=== PATIENT | male | born 1965 | race Caucasian/White ===

== ENCOUNTER 2022-05-06 12:35 | Emergency (ER) | payer OTHER, SELFPAY ==
--- NOTE | ~2022-05-06 | XR_ITS ---
EXAMINATION: XR chest 2V DATE: 05/06/2022 13:11 INDICATION: Dyspnea on exertion. TECHNIQUE: Frontal and lateral views of the chest were obtained. COMPARISON: None. FINDINGS: There is mild scarring at right lung apex. No pleural effusion or pneumothorax. The heart s ize is normal. IMPRESSION: 1. Mild scarring at right lung apex. Reviewed, dictated and finalized at location A.
[2022-05-06 12:50] VITALS: BP 119/73; PULSE 88; RESP 18; TEMP 36.8; O2SAT 97
--- NOTE | 2022-05-06 13:17 | ED.URI ---
HPI - URI/Sore Throat General Chief Complaint: Upper Respiratory Infection Stated Complaint: Diarrhea,Chills Time Seen by Provider: 05/06/22 13:17 Source: patient Mode of arrival: ambulatory Limitations: no limitations History of Present Illness HPI Narrative: 56 yo M presents with c/o diarrhea, upset stomach, fatigue for 4 days. Has fever for 1 day that resolved. Start taking antidiarrheal yesterday which has slowed down diarrhea somewhat. Was able to eat pancakes for breakfast. States he is hungry but afraid to eat because runs right through him . States rectum is getting sore. Able to keep down fluids. No N/V. Does feel winded when ambulatory with generalized weakness. NO cough, congestion, sore throat. All systems reviewed and negative except as noted above. Related Data Home Medications Medication Instructions Recorded Confirmed atorvastatin 20 mg tablet 20 mg HS 05/06/22 05/06/22 omeprazole 40 mg capsule,delayed 40 mg DAILY 05/06/22 05/06/22 release Allergies Allergy/AdvReac Type Severity Reaction Status Date / Time sertraline Allergy Unknown Rash Verified 09/26/18 14:27 ranitidine [From Zantac] Allergy Unknown Verified 05/06/22 13:03 Review of Systems Review of Systems: CONSTITUTIONAL: Denies fever, chills, or sweats. EYES: Denies visual changes, redness, or discharge. ENT: Denies rhinorrhea, congestion, sore throat, or otalgia. CARDIOVASCULAR: Denies chest pain, palpitations, or edema. RESPIRATORY: Denies cough or dyspnea. GASTROINTESTINAL: Denies abdominal pain, nausea, vomiting. Reports diarrhea. GENITOURINARY: Denies dysuria or hematuria. SKIN: Denies rash or itching. MUSCULOSKELETAL: Denies back pain, joint pain, or myalgia. NEUROLOGIC: Denies headache, numbness, or weakness. PSYCHIATRIC: Denies anxiety or depression. All other systems reviewed are negative, except as documented in HPI. PMFSH Comments At time of signature, agree with nursing past medical, surgical, social and family history. There is no relevant family history pertinent to the presenting complaint. Exam Narrative: GENERAL: This is a well-nourished, well-developed patient, in no apparent distress. HEAD: normocephalic, atraumatic. EYES: PERRL. Sclera clear/white. Vision is grossly intact. EARS: External ears normal NOSE: External nose normal NECK: Neck supple, non-tender without lymphadenopathy, masses or thyromegaly. CARDIOVASCULAR: Regular rate and rhythm without murmurs, gallops, or rubs. RESPIRATORY: Clear to auscultation. Breath sounds equal bilaterally. No wheezes, rales, or rhonchi. GASTROINTESTINAL: Abdomen soft, non-tender, nondistended. Bowel sounds are hyperactive active. No hepato-splenomegaly, or palpable masses. No guarding. SKIN: warm, Dry, intact with no suspicious lesions or rash, good texture and turgor. NEURO: awake, alert, and oriented to person, place and time. There were no obvious focal neurologic abnormalities. EXTREMITIES: No joint tenderness, effusion, or edema noted. Course Course Level of Care: Express Care Visit Vital Signs Vital signs: Vital Signs Temperature 36.8 C 05/06/22 12:50 Pulse Rate 88 05/06/22 12:50 Respiratory Rate 18 05/06/22 12:50 Blood Pressure 119/73 05/06/22 12:50 Pulse Oximetry 97 05/06/22 12:50 Oxygen Delivery Room Air 05/06/22 12:50 Temperature 36.8 C 05/06/22 12:50 Pulse Rate 88 05/06/22 12:50 Respiratory Rate 18 05/06/22 12:50 Blood Pressure 119/73 05/06/22 12:50 Pulse Oximetry 97 05/06/22 12:50 Oxygen Delivery Room Air 05/06/22 12:50 Reviewed MDM - URI/Sore Throat MDM Narrative Medical decision making narrative: Patient is aware of diagnosis, understands and agrees to treatment plan. Anticipatory guidance given. Patient agrees to follow-up as directed and is aware of reasons to seek care at the emergency department. Portions of this record may have been created with voice recognition software Negative rapid COVID.
== END 2022-05-06 13:38 | disposition home or self-care (01) ==
PROVIDERS: Emergency Provider Nurse Practitioner Family
DX: B34.9 Viral infection, unspecified (principal); R19.7 Diarrhea, unspecified; Z20.822 Contact with and (suspected) exposure to COVID-19; E78.00 Pure hypercholesterolemia, unspecified; K21.9 Gastro-esophageal reflux disease without esophagitis
CPT/HCPCS: 71046; 87426; 99213; C9803; G0463

== ENCOUNTER 2023-03-03 15:00 | Outpatient (RCR) | payer OTHER, SELFPAY ==
--- NOTE | 2023-01-26 12:52 | OTOPEVAL1 ---
Assessment and note entered by Jovany Vigil, FARHEEN/Tino, CHT Evaluation Information Assessment Status Evaluation Diagnosis OA of left elbow Subjective Information Patient reports experiencing left elbow pain that has progressively gotten worse for about 6 months. X-rays are negative for fracture, but positive for OA. 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 He reports he may have injured his elbow a long time ago, but has never sought out medical evaluation or treatment for it. He reports that the elbow in the last 6 months has been giving him more pain, enough to finally have it looked at. He attended outpatient therapy for 2 months and he progressed to being able to now bend his elbow enough to wash his hair and put ear plugs in and he wore a dynamic elbow extension brace to work on extension for ~1 month. He reports he stopped wearing this due to pain. He reports he is having so much pain he is unable to use the left arm to drive. He reports no pain with distraction of the elbow - able to carry 5 lb. buckets of water without any pain. He is having pain with elbow flexion with resistance. Reported Pain Level Pain Score 5: Self Report Additional Pain Score Comments Patient reporting no pain at rest. 5/10 pain with lifting a 5 lb. dumbbell off the floor. Reports pain can get up to 8/10 at the worst , this typically happens with any sort of heavy lifting/resisted elbow flexion. Assessment OT Clinical Summary Patient referred to outpatient OT with dx of left elbow OA. He has been experiencing progressively worsening of his symptoms of pain and stiffness over the last 6 months and is unable to pinpoint a particular injury. Evaluation today reveals functional elbow flexion/extension ROM, but very limited active supination. The radial head is the site of his pain/discomfort. This area is limiting his ability to flex with resistance due to degenerative changes and stiffness. He will benefit from skilled OT for use of modalities, manual therapy, strengthening, and HEP instruction and progression to facilitate optimal functional use of the left UE. Plan of Care Interventions Therapeutic Exercise,Manual Therapy,Hot Pack/Cold
--- NOTE | 2023-03-03 15:37 | OTOPDC ---
Assessment and note entered by Jovany Vigil, OTR/Tino, CHT Evaluation Information Diagnosis OA of left elbow Subjective Information Patient reports having left elbow pain for over a year, but reports it has been progressively getting worse over the last 8 months or so. X-rays are negative for fracture, but positive for OA. His pain tends to fluctuate depending on the activity, such as when raking up sticks/leaves and with lifting. He is now able to close his car door and use his left hand on the steering wheel. He continues to be concerned about the amount of pain he has with certain activities. Functional ROM has remained unchanged: elbow flexion 125 degrees, elbow extension -20 degrees, and supination 55 degrees. Pronation is WNL. Gross strength is WNL. Reported Pain Level Pain Score 0: Self Report Additional Pain Score Comments Reporting no pain at rest. In the last week his pain has gotten up to an 8/10 with activity. When trying to lift a 5 lb. weight up off the floor, he reports 5/10 pain. This has remained unchanged since the start of care. Assessment OT Clinical Summary Patient referred to outpatient OT with dx of left elbow OA. He has been experiencing progressively worsening of his symptoms of pain and stiffness over the last 6-8 months. He has made some functional progress with now being able to use the left hand to close the car door and turn his steering wheel, however these abilities fluctuate depending on pain. He continues to have reduced forearm rotation and pain at the radial head with mobilizing the elbow joint into supination. Limited functional progress noted with therapeutic intervention. Recommend he continues to complete ROM and strengthening HEP to inhibit further stiffness. Also recommend the follows up with MD for other pain treatment options. Plan of Care OT Services Indicated No
== END 2023-03-03 16:36 | disposition home or self-care (01) ==
LOC: ANHHIOT 15:00
PROVIDERS: Visit Provider Orthopaedic Surgery
DX: M19.022 Primary osteoarthritis, left elbow (principal)
CPT/HCPCS: 97018; 97110; 97140; 97165; 99199

== ENCOUNTER 2024-07-20 15:45 | Outpatient (RCR) | payer OTHER, SELFPAY ==
--- NOTE | 2024-05-25 19:26 | PTOPEVAL1 ---
Assessment and note entered by Yee Monroe, PT Evaluation Information Assessment Status Evaluation Diagnosis strain of neck muscle initial encounter ICD-10 Condition Codes (PT) Cervicalgia M54.2 Other ICD-10 Condition Codes ( Abnormal posture PT) Onset 3 weeks ago Subjective Information Pt states about three weeks ago pain started in right side of neck off and on, but since then has been more frequent and today has been all day. Muscle relaxers helped but would know me out but would take at night and then the next day would have difficulty waking up Stopped taking these. Pt states took Ibuprofen but didn't know if it was helping or not since the pain would be off and on. Did not do x-rays. Pain stays localized to the neck area Reported Pain Level Pain Score 5: Self Report Assessment PT Clinical Summary Pt presents with complaints of right sided neck pain that began approx three weeks ago. Reports pain initially was on and off then became more consistent. Tried ibuprofen but not consistently and was unable to tell if this helped as the pain was not consistent. Muscle relaxers at night helped but he cont to have groggy symptoms the next morning thus stopped taking the medication. Pt evaluation demo's decreased cervical ROM, increased pain with extension, right lateral flexion, and right rotation, significant tenderness to palpation to the soft tissues of the right side of the neck consistent with medical diagnosis and with possibility of facet impingement underlying. Pt has been educated on changed in his positioning and cryotherapy to reduce inflammation to begin immediately. He will benefit from physical therapy to address deficits, reduce pain, and return to PLOF. Plan of Care Interventions Electrical Stimulation,Hot Pack/Cold Pack,Manual Therapy,Mechanical Traction,Neuro Re-education, Therapeutic Activities,Therapeutic Exercise,Self- Care/Home Management,Ultrasound PT Services Indicated Yes Treatment Frequency and 2x weekly x 10 visits Duration These treatments will address the objective and functional deficits as defined above. The patient will be advanced safely and appropriately in order for the patient to progress towards his/her prior level of function. Additional exercises will be introduced and as well as a comprehensive home exercise program upon discharge, if needed, ?to ensure carryover of funct
--- NOTE | 2024-05-25 19:26 | OPREHPOC ---
Outpatient Therapy Plan of Care This is a Multidisciplinary Plan of Care that may contain components documented by all disciplines (PT, OT, and ST.) PT Problem 1 PT Problem #1 Knowledge Deficit PT Goal 1 Goal / Goal Update Pt will be independent in HEP Pt will verbalize understanding of diagnosis and prognosis Target Visit 10 PT Problem 2 PT Problem #2 Pain PT Goal 1 Goal / Goal Update Pt will report greatest pain level at 5/10 or less to improve ADLs and activities Target Visit 10 PT Goal 2 Goal / Goal Update Pt will report resolution of pain to return to PLOF Target Visit 20 PT Problem 3 PT Problem #3 Impaired Range of Motion PT Goal 1 Goal / Goal Update Pt will demo cervical active ROM rotation ami of 75% or greater Target Visit 10 PT Goal 2 Goal / Goal Update Pt will demo lateral cervical flexion of 30 degrees or greater without pain ami Target Visit 20
--- NOTE | 2024-07-20 17:21 | PTOPDC ---
Assessment and note entered by Amelia Cortes, PT Evaluation Information Assessment Status Discharge Diagnosis strain of neck muscle initial encounter ICD-10 Condition Codes (PT) Cervicalgia M54.2 Other ICD-10 Condition Codes ( Abnormal posture PT) Onset 3 weeks ago Subjective Information Pt reports he can move his head better now and the pain is not as much as before. However, he is frustrated because he continue to feel pain and discomfort to the same area in the neck every time he turns to the R side and it would feel stiff going back to the center. Pain is persisting, not gone 100%. Reported Pain Level Pain Score 2: Self Report Assessment PT Clinical Summary Pt demos gains in therapy with ROM and strength. However, pain is persisting with very specific movement. Pt requested to be DC'd and will talk to the MD about other options at this time. Skilled PT discontinued. Plan of Care PT Services Indicated No
== END 2024-07-21 14:59 | disposition home or self-care (01) ==
LOC: ANHHIPT 15:45
DX: S16.1XXA Strain of muscle, fascia and tendon at neck level, initial encounter (principal)
CPT/HCPCS: 97012; 97014; 97032; 97035; 97110; 97140; 97161; 97530; 97750; G0283

== ENCOUNTER 2025-06-01 15:00 | Outpatient (RCR) | payer OTHER, SELFPAY ==
--- NOTE | 2025-03-06 16:15 | OTOPEVAL1 ---
Assessment and note entered by FARHEEN Seo/Tino, CHT Evaluation Information Assessment Status Evaluation Diagnosis Primary OA of left elbow ICD-10 Condition Codes (OT) Pain in left elbow M25.522 Subjective Information 03/02/25: Patient underwent left elbow open debridement with loose body removal and capsular release. He presents today for initiation of his HEP and for fabrication of a night time extension orthosis. He has not been using his left hand at all and his has been assisting him with ADLs PRN. Reported Pain Level Pain Score 6: Self Report Additional Pain Score Comments 8/10 with active ROM. Assessment OT Clinical Summary Patient referred to OT 4 days following arthroscopic elbow capsular release and debridement. Initiated active assisted ROM HEP for elbow flexion, extension, pronation, and supination. Also fabricated a custom elbow extension orthosis for night wear. Patient's present and demonstrates good understanding of active assisted ROM. Patient able to flex the elbow ~40 degrees and he does achieve full extension. Instructed in HEP, positioning, precautions, orthotic wear, use of ice/elevation, and to keep incision area clean and dry. Continued follow up indicated to progress functional ROM, modalities for pain, HEP progression, manual therapy, and therapeutic exercise to facilitate optimal functional left UE ROM/use for ADLs. Plan of Care Interventions Therapeutic Exercise,Manual Therapy,Therapeutic Activities,Hot Pack/Cold Pack,Check Out for Orthotic/Prosthetic,Ultrasound,Paraffin OT Services Indicated Yes Treatment Frequency and 2x/week for 8 visits Duration These treatments will address the objective and functional deficits as defined above. The patient will be advanced safely and appropriately in order for the patient to progress towards his/her prior level of function. Additional exercises will be introduced and as well as a comprehensive home exercise program upon discharge, if needed, ?to ensure carryover of functional gains achieved in the clinic. This treatment plan has been reviewed and agreement upon by the patient.
--- NOTE | 2025-03-06 16:15 | OPREHPOC ---
Outpatient Therapy Plan of Care This is a Multidisciplinary Plan of Care that may contain components documented by all disciplines (PT, OT, and ST.) OT Problem 1 OT Problem #1 Knowledge Deficit OT Goal 1 Goal / Goal Update 1. Patient to be independent with instructed materials. Target Visit 8 OT Problem 2 OT Problem #2 Pain OT Goal 1 Goal / Goal Update 1. Patient to report reduced left elbow pain to 4/ 10 or less with active ROM. Target Visit 8 OT Problem 3 OT Problem #3 Impaired Range of Motion OT Goal 1 Goal / Goal Update 1. Patient to progress to 120 degrees of active elbow flexion. 2. Patient to progress to full forearm rotation with the elbow at 90 degrees. Target Visit 8
--- NOTE | 2025-03-28 10:43 | OTOPPROG ---
Assessment and note entered by Jovany Vigil, FARHEEN/Tino, JOY OT Progress Update 03/28/25 Assessment Status Progress Diagnosis Primary OA of left elbow ICD-10 Condition Codes (OT) Pain in left elbow M25.522,Generalized muscle weakness M62.81 Subjective Information 03/02/25: Patient underwent left elbow open debridement with loose body removal and capsular release. Patient reports good progress since the start of care. He reports his ROM is improving and his pain is reducing. He is back to completing ADLs independently. ROM: Elbow flexion improved from 40 to 120 deg. Elbow extension remained at -5 deg. Supination measuring 45 deg. Pronation is WNL/85 deg. Assessment OT Clinical Summary Patient referred to OT following left elbow arthroscopic capsular release and debridement. He is progressing very well with therapy. His elbow ROM is progressing toward normal limits: 120-125 degrees of flexion and elbow extension has maintained -5 degree extension lag. Forearm pronation is WNL and supination improved to 45 degrees. His tolerance with active and passive ROM is improving. Adding shoulder ROM to his HEP due to evidence of tightness and weakness proximally. He is working on scar mobilization as well. Continued follow up indicated to progress functional ROM, progress HEP, modalities for pain, manual therapy, and therapeutic exercise to facilitate optimal functional left UE ROM/use for ADLs. Plan of Care Interventions Therapeutic Exercise,Manual Therapy,Neuro Re- education,Therapeutic Activities,Hot Pack/Cold Pack,Check Out for Orthotic/Prosthetic,Ultrasound, Paraffin OT Services Indicated Yes Treatment Frequency and 2x/week for 8 visits Duration These treatments will address the objective and functional deficits as defined above. The patient will be advanced safely and appropriately in order for the patient to progress towards his/her prior level of function. Additional exercises will be introduced and as well as a comprehensive home exercise program upon discharge, if needed, ?to ensure carryover of functional gains achieved in the clinic. This treatment plan has been reviewed and agreement upon by the patient.
--- NOTE | 2025-03-28 10:44 | OPREHPOC ---
Outpatient Therapy Plan of Care This is a Multidisciplinary Plan of Care that may contain components documented by all disciplines (PT, OT, and ST.) OT Problem 1 OT Problem #1 Knowledge Deficit OT Goal 1 Goal / Goal Update 1. Patient to be independent with instructed materials. ---OT POC UPDATE 03/28/25--- 1. Met, continue as HEP is progressed. Target Visit 8 OT Problem 2 OT Problem #2 Pain OT Goal 1 Goal / Goal Update 1. Patient to report reduced left elbow pain to 4/ 10 or less with active ROM. ---OT POC UPDATE 03/28/25--- 1. Met. Continue to monitor and treat pain as needed. Target Visit 8 OT Problem 3 OT Problem #3 Impaired Range of Motion OT Goal 1 Goal / Goal Update 1. Patient to progress to 120 degrees of active elbow flexion. 2. Patient to progress to full forearm rotation with the elbow at 90 degrees. ---OT POC UPDATE 03/28/25--- 1. Met. Upgrade to 130 degrees. 2. Met with pronation, progressing with supination . Continue. Target Visit 8 OT Problem 4 OT Problem #4 Impaired Strength OT Goal 1 Goal / Goal Update * NO strengthening until 6 weeks post up (04/13/25) * 1. Patient to be able to complete left elbow flexion and extension strengthening with red t- band x10 reps with good form/no cues. Target Visit 16
--- NOTE | 2025-05-02 08:43 | OTOPPROG ---
Assessment and note entered by Jovany Vigil, FARHEEN/Tino, JOY OT Progress Update 05/02/25 Assessment Status Progress Diagnosis Primary OA of left elbow ICD-10 Condition Codes (OT) Pain in left elbow M25.522,Generalized muscle weakness M62.81 Subjective Information 03/02/25: Patient underwent left elbow open debridement with loose body removal and capsular release. Patient reports good progress since the start of care. He reports his ROM feels great. Reporting some soreness, but not really any pain. He reports being able to use his arm for all tasks except for being limited with heavy lifting. He has progressed to 2 lbs. for strengthening. ROM: Elbow flexion 120 deg. Elbow extension -5 to -10 deg. Supination 60 deg. Pronation is WNL/85 deg. Assessment OT Clinical Summary Patient referred to OT following left elbow arthroscopic capsular release and debridement. He is progressing very well with therapy. His elbow ROM is progressing toward normal limits: 120-125 degrees of flexion and elbow extension has maintained -5 degree extension lag. Forearm pronation is WNL and supination improved to 60 degrees. We have progressed to light strengthening with therabands and 2 lb. free weight. Continued follow up indicated to progress functional ROM, progress HEP, modalities for pain, manual therapy, and therapeutic exercise to facilitate optimal functional left UE ROM/use for ADLs. Plan of Care Interventions Therapeutic Exercise,Manual Therapy,Neuro Re- education,Therapeutic Activities,Hot Pack/Cold Pack,Check Out for Orthotic/Prosthetic,Ultrasound, Paraffin OT Services Indicated Yes Treatment Frequency and 1x/week for 4 visits Duration These treatments will address the objective and functional deficits as defined above. The patient will be advanced safely and appropriately in order for the patient to progress towards his/her prior level of function. Additional exercises will be introduced and as well as a comprehensive home exercise program upon discharge, if needed, ?to ensure carryover of functional gains achieved in the clinic. This treatment plan has been reviewed and agreement upon by the patient.
--- NOTE | 2025-05-02 08:44 | OPREHPOC ---
Outpatient Therapy Plan of Care This is a Multidisciplinary Plan of Care that may contain components documented by all disciplines (PT, OT, and ST.) OT Problem 1 OT Problem #1 Knowledge Deficit OT Goal 1 Goal / Goal Update 1. Patient to be independent with instructed materials. ---OT POC UPDATE 03/28/25--- 1. Met, continue as HEP is progressed. ---OT POC UPDATE 05/02/25--- 1. Met, continue as HEP is progressed. Target Visit 18 OT Problem 2 OT Problem #2 Pain OT Goal 1 Goal / Goal Update 1. Patient to report reduced left elbow pain to 4/ 10 or less with active ROM. ---OT POC UPDATE 03/28/25--- 1. Met. Continue to monitor and treat pain as needed. ---OT POC UPDATE 05/02/25--- 1. Met. Continue to monitor and treat pain as needed. Target Visit 18 OT Problem 3 OT Problem #3 Impaired Range of Motion OT Goal 1 Goal / Goal Update 1. Patient to progress to 120 degrees of active elbow flexion. 2. Patient to progress to full forearm rotation with the elbow at 90 degrees. ---OT POC UPDATE 03/28/25--- 1. Met. Upgrade to 130 degrees. 2. Met with pronation, progressing with supination . Continue. ---OT POC UPDATE 05/02/25--- 1. Not met, continue 2. Progressing with supination, continue Target Visit 18 OT Problem 4 OT Problem #4 Impaired Strength OT Goal 1 Goal / Goal Update * NO strengthening until 6 weeks post up (04/13/25) * 1. Patient to be able to complete left elbow flexion and extension strengthening with red t- band x10 reps with good form/no cues. ---OT POC UPDATE 05/02/25--- 1. Met with green band. Upgrade goal to elbow/ forearm strengthening with 4 lbs. Target Visit 18
--- NOTE | 2025-06-01 15:57 | OTOPDC ---
Assessment and note entered by Jovany Vigil, OTR/L, CHT OT D/C Notification 06/01/25 Diagnosis Primary OA of left elbow ICD-10 Condition Codes (OT) Pain in left elbow M25.522,Generalized muscle weakness M62.81 Subjective Information 03/02/25: Patient underwent left elbow open debridement with loose body removal and capsular release. Patient reports good progress since the start of care. He is back to work and using his arm as much as he can. He notices some pain with using a rake and with rolling up the window in his work truck (crank handle). He has progressed to 3 lbs. for his HEP. 4 lbs. for elbow and forearm strengthening continue to cause pain. He reports he can comfortably lift 5 lb. items, however if the task involves any sort twisting of the forearm , then he experiences pain with the task. He reports experiencing 8-9/10 pain at times, specifically with activities that require resisted forearm rotation. At rest he has no pain. No reports of paresthesia. ROM: Elbow flexion 125 deg. Elbow extension -10 deg. Supination 60 deg. Pronation is WNL/85 deg. 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 (L) dictaphone technician strength 27 lbs. Reported Pain Level Pain Score 0: Self Report Additional Pain Score Comments No pain at rest. Intermittent 8-9/10 pain in the forearm when performing activities that cause resisted forearm rotation. He reports the pain is very short-lived and goes back down to 0/10 when he stops the task. Assessment OT Clinical Summary Patient referred to OT following left elbow arthroscopic capsular release and debridement. He has progressed very well with therapy. ROM of the elbow has progressed to functional limits at 125 degrees of flexion at -5 to -10 degrees of an extension lag. Supination has stalled at 60 degrees (right arm supination measures 70 degrees) . He continues to experience pain with resisted forearm rotation activities and exercises if the weight is too heavy. Reviewed HEP today and had a long discussion about slowly progressing up in weight and slowly incorporating the arm into more activities. Discussed the role of heat and ice, the importance of stretching, and being cognizant of using the arm within his pain tolerance and not over doing it. At this time the patient is independent with all materials and is in agreement with discharge. D/C OT today with HEP. Plan of Care OT Services Indicated No
== END 2025-06-01 16:04 | disposition home or self-care (01) ==
LOC: ANHHIOT 15:00
PROVIDERS: Visit Provider Orthopaedic Surgery
DX: M19.022 Primary osteoarthritis, left elbow (principal)
CPT/HCPCS: 97018; 97110; 97112; 97140; 97166; 97530; L3702